=== PATIENT | male | born 1950 | race Caucasian/White ===

== ENCOUNTER → 2016-09-20 | Outpatient (CLI) | payer BC | END | disposition home or self-care (01) | LOC: PCVCIMAG 10:04 | PROVIDERS: ATTEND Internal Medicine Cardiovascular Disease | DX: I10 Essential (primary) hypertension (principal); E78.00 Pure hypercholesterolemia, unspecified; Z95.1 Presence of aortocoronary bypass graft | CPT/HCPCS: 93325; 93351 ==

== ENCOUNTER → 2016-12-19 | Outpatient (CLI) | payer BC ==
--- NOTE | 2016-12-20 17:50 | PCVCIMAG ---
EXAM: BILATERAL LOWER EXTREMITY ARTERIAL DUPLEX INDICATION: Peripheral Arterial Disease. Leg pain. FINDINGS: Right Leg: Satisfactory arterial waveforms in the common femoral and profunda femoral arteries. Previous stents in the mid and upper superficial femoral artery showing satisfactory patency. Previous stent distal SFA showing satisfactory patency. Moderate velocity elevation up to 308 cm/s peak systolic velocity in the proximal popliteal artery within prior stent consistent with 60-70% restenosis. Mid and distal popliteal artery maintaining good patency. The anterior tibial, posterior tibial, and peroneal arteries remain patent. Left Leg: Satisfactory arterial waveforms in the common femoral, profunda femoral, and superficial femoral artery without evidence of significant stenosis. Left superficial femoral artery stents maintaining satisfactory patency. 60-70% stenosis mid popliteal artery is unchanged. Anterior tibial, posterior tibial, and peroneal arteries remain patent. IMPRESSION: 60-70% restenosis proximal right popliteal artery within prior stent has progressed some since prior study but is not felt to be critically flow-limiting. Right superficial femoral artery stent maintaining satisfactory patency. Previous left superficial femoral artery stent remains patent. 60-70% stenosis mid left popliteal artery is unchanged. LOC:[id number]
== END | disposition home or self-care (01) ==
LOC: PCVCIMAG 11:20
PROVIDERS: ATTEND Internal Medicine Cardiovascular Disease
DX: I70.203 Unspecified atherosclerosis of native arteries of extremities, bilateral legs (principal); I10 Essential (primary) hypertension; E11.9 Type 2 diabetes mellitus without complications; I25.10 Atherosclerotic heart disease of native coronary artery without angina pectoris; I45.10 Unspecified right bundle-branch block; E78.00 Pure hypercholesterolemia, unspecified; Z95.1 Presence of aortocoronary bypass graft; Z95.5 Presence of coronary angioplasty implant and graft; Z79.82 Long term (current) use of aspirin; Z79.899 Other long term (current) drug therapy; Z87.891 Personal history of nicotine dependence; Z79.4 Long term (current) use of insulin
CPT/HCPCS: 80061; 93005; 93925; G0463

== ENCOUNTER → 2017-06-19 | Outpatient (CLI) | payer BC ==
--- NOTE | 2017-06-19 19:30 | PCVCIMAG ---
EXAM: BILATERAL LOWER EXTREMITY ARTERIAL DUPLEX INDICATION: Peripheral Arterial Disease. Leg pain. FINDINGS: Right Leg: Satisfactory arterial waveforms in the common femoral and profunda femoral arteries. Previous stents in the proximal and distal superficial femoral artery maintaining satisfactory patency. Mild 40-50% stenosis mid/distal popliteal artery. The anterior tibial, peroneal, and posterior tibial arteries are patent. Left Leg: Satisfactory waveforms in the common femoral and profunda femoral arteries. 50-60% stenosis in the mid [place] superficial femoral artery. Stent in the distal superficial femoral artery and upper popliteal artery is patent. 60-70% stenosis mid popliteal artery is unchanged. The anterior tibial, peroneal, and posterior tibial arteries are patent. IMPRESSION: Previous right superficial femoral artery stents are patent. 40-50% stenosis mid/distal right popliteal artery. Previous left superficial femoral artery stent is patent. 60-70% stenosis [place] mid left popliteal artery. No change since December 2016 study. Interval follow-up in 6 months is recommended. LOC:[id number]
== END | disposition home or self-care (01) ==
LOC: PCVCIMAG 12:43
PROVIDERS: ATTEND Internal Medicine Cardiovascular Disease
DX: I25.10 Atherosclerotic heart disease of native coronary artery without angina pectoris (principal); I73.9 Peripheral vascular disease, unspecified; M19.90 Unspecified osteoarthritis, unspecified site; E11.9 Type 2 diabetes mellitus without complications; I10 Essential (primary) hypertension; M25.561 Pain in right knee; I45.10 Unspecified right bundle-branch block; I77.1 Stricture of artery; Z87.891 Personal history of nicotine dependence; Z79.899 Other long term (current) drug therapy; Z79.82 Long term (current) use of aspirin; Z95.1 Presence of aortocoronary bypass graft
CPT/HCPCS: 80061; 93005; 93925

== ENCOUNTER → 2017-09-20 | Outpatient (CLI) | payer BC | END | disposition home or self-care (01) | LOC: PCVCIMAG 11:15 | DX: I65.23 Occlusion and stenosis of bilateral carotid arteries (principal) | CPT/HCPCS: 93880 ==

== ENCOUNTER → 2017-10-05 | Outpatient (CLI) | payer BC ==
[~2017-10-05] MED LIST: ASPIRIN 325 MG TABLET; CLOPIDOGREL BISULFATE 75 MG TABLET; DIAZEPAM 10 MG TABLET.; EPINEPHrine 1 MG/ML VIAL; EPTIFIBATIDE BOLUS 2,000 MCG/ML 10ML VIAL. IV; HEPARIN SODIUM 5,000 UNIT/ML VIAL for PCVC.; HEPARIN for ARTERIAL LINE 1,500 ML; IODIXANOL 270 MG/ML 100 ML VIAL.; IOHEXOL 350 MG/ML 100 ML VIAL.; IV NORMAL SALINE 500ML BAG 500 ML; LIDOCAINE 1% Multi-Dose 20 ML VIAL.; MIDAZOLAM HCL/PF 2 MG/2 ML VIAL.; WATER FOR INJECTION,STERILE 10 ML IJ; ceFAZolin SODIUM 1 GM VIAL; fentaNYL PF VIAL 100 MCG/2 ML VIAL; hydrALAZINE 20 MG/ML VIAL.
== END | disposition home or self-care (01) ==
LOC: PCVCINTER 08:18
DX: I25.10 Atherosclerotic heart disease of native coronary artery without angina pectoris (principal); I70.213 Atherosclerosis of native arteries of extremities with intermittent claudication, bilateral legs; I70.0 Atherosclerosis of aorta; I70.1 Atherosclerosis of renal artery; I10 Essential (primary) hypertension; Z95.1 Presence of aortocoronary bypass graft; Z87.891 Personal history of nicotine dependence
CPT/HCPCS: 36252; 37186; 37221; 37227; 75716; 76937; 93459; 99152; 99153; C1725; C1751; C1757; C1760; C1769; C1876; C1885; C1887; C1894; J0171; J0360; J0690; J1327; J1644; J2250; J3010; J7040; Q9967

== ENCOUNTER → 2017-10-19 | Outpatient (CLI) | payer BC ==
[~2017-10-19] MED LIST changes: -ASPIRIN 325 MG TABLET; -CLOPIDOGREL BISULFATE 75 MG TABLET; -HEPARIN for ARTERIAL LINE 1,500 ML; +HYDROcodone/APAP 5/325MG 1 TAB TABLET; -IOHEXOL 350 MG/ML 100 ML VIAL.; +IV NORMAL SALINE 1000ML BAG 1,000 ML; -IV NORMAL SALINE 500ML BAG 500 ML; -WATER FOR INJECTION,STERILE 10 ML IJ
== END | disposition home or self-care (01) ==
LOC: PCVCINTER 07:22
DX: I70.211 Atherosclerosis of native arteries of extremities with intermittent claudication, right leg (principal); I70.1 Atherosclerosis of renal artery; I25.10 Atherosclerotic heart disease of native coronary artery without angina pectoris; I10 Essential (primary) hypertension
CPT/HCPCS: 37186; 37227; 76937; 99152; 99153; C1725; C1751; C1757; C1760; C1769; C1876; C1885; C1894; C2623; J0171; J0360; J0690; J1327; J1644; J2250; J3010; J7030

== ENCOUNTER → 2018-01-07 | Outpatient (CLI) | payer BC | END | disposition home or self-care (01) | LOC: PCVCIMAG 13:40 | DX: I73.9 Peripheral vascular disease, unspecified (principal) | CPT/HCPCS: 93925 ==

== ENCOUNTER → 2018-05-23 | Outpatient (CLI) | payer BC ==
--- NOTE | 2018-05-23 09:38 | PCVCIMAG ---
EXAM: BILATERAL LOWER EXTREMITY ARTERIAL DUPLEX INDICATION: Peripheral Arterial Disease. Leg pain. FINDINGS: Right Leg: Common femoral and profunda femoral arteries are patent. Previous stent mid superficial femoral artery is patent. Previous stent distal superficial femoral artery and popliteal artery maintaining good patency. The anterior tibial, peroneal, posterior tibial arteries are patent. Left Leg: Common femoral and profunda femoral arteries are patent. Increased systolic velocity of 249 cm/s mid/distal superficial femoral artery at the distal margin of the prior stent consistent with 60-70% restenosis. Increased systolic velocity 268 cm/s from 44 cm/s in the mid popliteal artery within the midportion of the prior stent consistent with 80% restenosis. The anterior tibial, peroneal, posterior tibial arteries are patent. IMPRESSION: No flow limiting stenosis in the right lower extremity. Previous right superficial femoral and popliteal artery stents remain patent. 80% restenosis mid left popliteal artery in the midportion prior stent. 60-70% restenosis mid left superficial femoral artery at the distal margin of a prior stent. LOC:[id number]
== END | disposition home or self-care (01) ==
LOC: PCVCIMAG 08:17
PROVIDERS: ATTEND Internal Medicine Cardiovascular Disease
DX: E11.51 Type 2 diabetes mellitus with diabetic peripheral angiopathy without gangrene (principal)
CPT/HCPCS: 93925

== ENCOUNTER → 2018-06-14 | Outpatient (CLI) | payer BC ==
[~2018-06-14] MED LIST changes: -DIAZEPAM 10 MG TABLET.; +DIAZEPAM 10 MG TABLET. ONE; -EPINEPHrine 1 MG/ML VIAL; -EPTIFIBATIDE BOLUS 2,000 MCG/ML 10ML VIAL. IV; +EPTIFIBATIDE BOLUS 2,000 MCG/ML 10ML VIAL. IV ONE; -HEPARIN SODIUM 5,000 UNIT/ML VIAL for PCVC.; +HEPARIN for SUB-Q USE 5,000 UNIT/ML VIAL. SQ ONE; -HYDROcodone/APAP 5/325MG 1 TAB TABLET; -IODIXANOL 270 MG/ML 100 ML VIAL.; +IODIXANOL 270 MG/ML 100 ML VIAL. ONE; -IV NORMAL SALINE 1000ML BAG 1,000 ML; +IV NORMAL SALINE 1000ML BAG 1,000 ML ONE; -LIDOCAINE 1% Multi-Dose 20 ML VIAL.; +LIDOCAINE 1%/EPI 1:100,000 20 ML VIAL. ONE; -MIDAZOLAM HCL/PF 2 MG/2 ML VIAL.; +MIDAZOLAM HCL/PF 2 MG/2 ML VIAL. ONE; -ceFAZolin SODIUM 1 GM VIAL; -fentaNYL PF VIAL 100 MCG/2 ML VIAL; +fentaNYL PF VIAL 100 MCG/2 ML VIAL ONE; -hydrALAZINE 20 MG/ML VIAL.; +hydrALAZINE 20 MG/ML VIAL. ONE
--- NOTE | 2018-06-14 12:52 | PCVCINTER ---
EXAM: 1. AORTOGRAM AND BILATERAL LOWER EXTREMITY RUNOFF ANGIOGRAM 2. BILATERAL RENAL ANGIOGRAPHY 3. LEFT SUPERFICIAL FEMORAL ARTERY AND POPLITEAL ARTERY ATHERECTOMY AND DRUG COATED BALLOON ANGIOPLASTY. 4. SECONDARY THROMBECTOMY LEFT POPLITEAL ARTERY. INDICATION: Peripheral arterial disease. Coronary artery disease. Development of left calf claudication. Hypertension. Renal atherosclerosis. No prior catheter based angiographic study is available. A full diagnostic angiogram study is performed today and the decision to intervene is based on this diagnostic study. PROCEDURE: Procedure and risks of angiography intervention is appropriate including limb loss stroke and were discussed with the patient's family and consent obtained. The patient's right groin was prepped in the normal sterile fashion. IV conscious sedation was used throughout procedure with appropriate monitoring from 10:30 AM through 12:00 PM. Ultrasound was used to interrogate the right groin and showed the right common femoral artery to be patent. A permanent spot film was obtained. Under ultrasound guidance access into the right common femoral artery was obtained and a 5 [place] sheath was placed. Through this a 5 [place] flush catheter was placed into the abdominal aorta at the level of the renal arteries and AP aortogram was performed. Catheter was positioned at the aortic bifurcation and both oblique views of the pelvis were obtained. Catheter was positioned into the right external iliac artery and right leg runoff angiography was performed. Catheter was exchanged for a visceral catheter was placed into the right renal arteries and right renal angiograms obtained. Catheter was placed into the the left renal arteries and left renal angiograms were obtained. Catheter was advanced to the level of the left external iliac artery and left leg runoff angiography was obtained. Patient was given 4500 units of heparin. A 6 [place] crossover sheath was placed via the right groin to the level of the left common femoral artery. Atherectomy of the left superficial femoral artery and popliteal artery was performed with 2.0 mm [employer] laser atherectomy catheter in the standard fashion. Following atherectomy small areas of thrombus were observed and because of this secondary thrombectomy throughout the left popliteal artery was carried out with mechanical suction thrombectomy catheter in the standard fashion. Minimal debris was removed. Following this drug coated balloon angioplasty of the left mid/distal superficial femoral artery and left popliteal artery was carried out with a 5 x 120, 5 x 120, and 5 x 40 [employer] [place] [employer] catheters. Follow-up angiogram was performed. Catheters and wires removed. Sheath was removed and hemostasis obtained using the FISH device. No immediate complications. FINDINGS: Aortogram: There is one right and one left renal artery. Minimal plaque infrarenal abdominal aorta without significant stenosis. Pelvis: Mild plaque right and left common iliac arteries without significant stenosis. Moderate stenosis of both internal iliac arteries. Right external iliac arteries patent. Previous stent left external iliac artery shows good patency. The right common femoral and profunda femoral arteries are widely patent. Moderate plaquing distal common femoral artery results in 50-60% stenosis. Right renal artery: Minimal plaque proximal vessel does not cause significant stenosis. Left renal artery: Minimal plaque proximal vessel does not cause significant stenosis. Right leg: Moderate scattered plaque throughout the superficial femoral artery does not cause flow-limiting stenosis including areas of prior stent. Previous popliteal stent shows mild 40% stenosis. Three-vessel runoff into the foot. Note is made the dorsalis pedis is diminutive in size. Left leg: Eccentric plaque at the origin the superficial femoral artery results in 60% stenosis not felt be critically flow-limiting. No significant velocity elevation on recent duplex here. Previous stent upper superficial femoral artery maintaining good patency. Moderate restenosis mid and distal superficial femoral artery within prior stent. High-grade restenosis in the mid and upper popliteal artery within prior stent. Distal popliteal artery is patent. Three-vessel runoff into the foot. Left superficial femoral artery/popliteal artery: Following procedure as above areas of treated vessels show good patency throughout. IMPRESSION: Development of moderate restenosis mid/distal left superficial femoral artery and high-grade restenosis proximal/mid left popliteal artery were treated as above with good patency restored. Eccentric 60% stenosis at the origin of the left superficial femoral artery not felt be critically flow-limiting. Previous right superficial femoral artery stents maintaining good patency. Mild restenosis right popliteal artery stent. LOC:[id number]
== END | disposition home or self-care (01) ==
LOC: PCVCINTER 09:19
PROVIDERS: ATTEND Nuclear Medicine Nuclear Cardiology
DX: I70.213 Atherosclerosis of native arteries of extremities with intermittent claudication, bilateral legs (principal); I70.1 Atherosclerosis of renal artery; I70.0 Atherosclerosis of aorta; I10 Essential (primary) hypertension; I25.10 Atherosclerotic heart disease of native coronary artery without angina pectoris; M19.90 Unspecified osteoarthritis, unspecified site; E11.9 Type 2 diabetes mellitus without complications; E78.00 Pure hypercholesterolemia, unspecified; I45.10 Unspecified right bundle-branch block; E87.8 Other disorders of electrolyte and fluid balance, not elsewhere classified; Z98.890 Other specified postprocedural states; Z83.3 Family history of diabetes mellitus; Z82.49 Family history of ischemic heart disease and other diseases of the circulatory system; Z87.891 Personal history of nicotine dependence; Z72.89 Other problems related to lifestyle; Z79.82 Long term (current) use of aspirin; Z79.899 Other long term (current) drug therapy; Z79.84 Long term (current) use of oral hypoglycemic drugs
CPT/HCPCS: 36252; 37186; 37225; 75716; 76937; 99152; 99153; C1725; C1751; C1757; C1760; C1769; C1885; C1894; C2623; J0360; J0690; J1327; J1644; J2250; J3010; J3490; J7030; Q9967

== ENCOUNTER → 2018-09-19 | Outpatient (CLI) | payer BC ==
--- NOTE | 2018-09-19 09:30 | PCVCIMAG ---
EXAM: BILATERAL LOWER EXTREMITY ARTERIAL DUPLEX INDICATION: Peripheral Arterial Disease. Leg pain. FINDINGS: Right Leg: Common femoral and profunda femoral arteries are patent. Previous stents throughout the superficial femoral artery maintaining satisfactory patency. Increased systolic velocity 296 cm/s mid popliteal artery at the distal margin of a prior stent consistent with 70-80% stenosis. The anterior tibial, peroneal, and posterior tibial arteries are patent. Left Leg: Common femoral and profunda femoral arteries are patent. 50-60% stenosis [place] superficial femoral artery consistent with prior angiogram. Previous superficial femoral artery and popliteal artery stents maintaining good patency with no additional stenoses seen. The anterior tibial, peroneal, and posterior tibial arteries are patent. IMPRESSION: 70-80% stenosis mid right popliteal artery with the distal portion of a prior stent. Previous right superficial femoral artery stents maintaining satisfactory patency. Unchanged 50-60% stenosis [place] left superficial femoral artery. Previous left superficial femoral artery and popliteal artery stents maintaining satisfactory patency. LOC:[id number]
== END | disposition home or self-care (01) ==
LOC: PCVCIMAG 07:42
PROVIDERS: ATTEND Nuclear Medicine Nuclear Cardiology
DX: E11.51 Type 2 diabetes mellitus with diabetic peripheral angiopathy without gangrene (principal)
CPT/HCPCS: 93925

== ENCOUNTER → 2019-06-03 | Outpatient (CLI) | payer BC ==
--- NOTE | 2019-06-03 09:27 | PCVCIMAG ---
EXAM: BILATERAL LOWER EXTREMITY ARTERIAL DUPLEX INDICATION: Peripheral Arterial Disease. Leg pain. FINDINGS: Right Leg: Common femoral and profunda femoral arteries are patent. Superficial femoral artery and popliteal artery are patent including previous stent graft in these vessels. The anterior tibial, peroneal, and posterior tibial arteries are patent. Left Leg: Common femoral profunda femoral arteries are patent. 50% stenosis proximal [place] left superficial femoral artery. Increased systolic velocity 402 cm/s from 67 cm/s distal superficial femoral artery within prior stent consistent with 90% stenosis. 80% stenosis upper left popliteal artery within prior stent. The anterior tibial, peroneal, and posterior tibial arteries are patent. IMPRESSION: Previous right superficial femoral artery and popliteal artery stent graft maintaining satisfactory patency. Interval development of 90% stenosis distal left superficial femoral artery and 80% stenosis upper left popliteal artery within prior stents. LOC:[id number]
== END | disposition home or self-care (01) ==
LOC: PCVCIMAG 07:52
PROVIDERS: ATTEND Internal Medicine Cardiovascular Disease
DX: I73.9 Peripheral vascular disease, unspecified (principal); I25.10 Atherosclerotic heart disease of native coronary artery without angina pectoris; E78.00 Pure hypercholesterolemia, unspecified; I45.10 Unspecified right bundle-branch block; I10 Essential (primary) hypertension; M19.90 Unspecified osteoarthritis, unspecified site; E11.9 Type 2 diabetes mellitus without complications; Z87.891 Personal history of nicotine dependence
CPT/HCPCS: 93925